=== PATIENT | male | born 1965 | race Hispanic/Latino ===

== ENCOUNTER 2016-11-15 08:46 | Emergency (ER) | payer OTHER ==
[~2016-11-15] VITALS: Ht 160 cm; Wt 81.8 kg
[~2016-11-15 08:46] MED LIST: VALA1000 PO
[2016-11-15 08:53] VITALS: BP 196/108; RESP 16; O2SAT 97
[2016-11-15] MEDS ORDERED: LISI-567 PO (09:10)
[2016-11-15] MEDS ORDERED: ATOR40TA69 PO (09:10)
[2016-11-15] MEDS ORDERED: METF500T4 PO (09:10)
[2016-11-15] MEDS ORDERED: HYDR25TA4 PO (09:10)
--- NOTE | 2016-11-15 09:18 | ED.REPORT ---
HPI-Ear Pain/Problem/FB Date of Service Nov 15, 2016 ED Provider: Juan Hoyos MD The patient is a 51 year old male with history of diabetes mellitus and hypertension, who presents to the emergency department complaining of left ear pain that began 2 days ago. He has also noticed clear/light red drainage from his ear, mild hearing loss, and diaphoresis. He has had similar symptoms in the past related to infections. He denies fever, chills, nausea or vomiting. He recently moved to the area and has not established primary care. Nursing Notes Stated Complaint: EAR PAIN Chief Complaint: ENT & Mouth Nursing Notes Reviewed: Yes Allergies: Coded Allergies: No Known Allergies (Unverified , 05/09/16) Scheduled Atorvastatin Calcium (Atorvastatin Calcium) 40 Mg Tablet 40 MG PO DAILY Hydrochlorothiazide (Hydrochlorothiazide) 25 Mg Tablet 12.5 MG PO DAILY Lisinopril (Lisinopril) 20 Mg Tablet 20 MG PO DAILY Metformin (Metformin) 500 Mg Tablet 500 MG PO DAILY Scheduled PRN Hydrocodone-Acetaminophen 5-325 mg (Hydrocodone-Acetaminophen 5-325 mg) 1 Each Tablet 1 TABLET PO Q4H PRN PRN For Pain General Time Seen by MD: 09:16 Chief Complaint Ear problem left Hx Obtained From: Patient Arrived By: Walk-in Onset Occurred: 2 days ago Symptom Duration: Since onset Quality: Painful Severity: Current: Mild Severity: Maximum: Moderate Recent Healthcare: No recent doctor visit, No recent hospitalization Similar Sx Previous: No Past Medical History Past Medical History Diabetes mellitus Hypertension Past Surgical History None reported Family History Noncontributory Smoking History Current Some Day Smoker Social History Recently moved to the area Other Social History: Local resident Ambulatory Status Independent Review of Systems Constitutional: Denies: Chills, Fever Ears / Nose / Throat: Reports: Ear drainage left, Earache left, Hearing loss left Complete sys rev & neg: except as marked. Additional Review of Systems GI: Denies: Nausea, Vomiting Skin: Reports Diaphoresis Physical Exam Initial Vital Signs Vital Signs (First) Date Time Temp Pulse Resp B/P Pulse Ox O2 Delivery O2 Flow Rate FiO2 11/15/16 08:53 36.3 68 16 196/108 97 Room Air Initial VS: Reviewed Head / Eyes: Atraumatic, Normocephalic, PERRL Neck: Supple, Non-tender, Full range of motion Respiratory: Breath sounds normal, Clear to auscultation, No respiratory distress Cardiovascular: Regular rate & rhythm, Heart sounds normal, Intact distal pulses Abdomen / GI: Soft, Non-tender, No guarding, No rebound, No distention Lymphatic: No lymphadenopathy Extremities: Vascular intact, Neuro intact, No swelling, No tenderness Skin: Warm, Dry, No cyanosis Neurologic: Alert, Oriented, Nonfocal Psychiatric: Mood/affect normal, Behavior normal, Normal thought content General/Constitutional: Awake, Alert, Cooperative ENT: Airway patent, Mucous membranes moist, Pharynx NL, No peritonsillar abscess, Nose exam NL, No sinus tenderness, No facial swelling Right Ear / Mastoid: Negative: Bullous myringitis, Tympanic memb perforated, Tympanic memb retracted, Tympanic membrane bulging, Tympanic membrane red Left Ear / Mastoid: Negative: Tympanic memb perforated, Tympanic memb retracted , Tympanic membrane bulging, Tympanic membrane red Left ear: serous drainage in external canal. External canal is slightly erythematous. No swelling or erythema of the TM. No evidence of erosion, abscess or cellulitis. Re-Eval/Medical Decision Med Decision/Clinical Course The patient is a 51 year old male with history of diabetes mellitus and hypertension, who presents to the emergency department complaining of left ear pain and drainage that began 2 days ago. He has had similar symptoms in the past. Upon arrival she is afebrile stable vital signs and no apparent distress. His diabetes is controlled by oral hypoglycemic agents and he is not on insulin. He is not nontoxic in appearance. Examination reveals drainage from the left external canal and slight erythema consistent with otitis externa. There is no evidence of perforation of the tympanic membrane or otitis media. There is no evidence of ligament otitis externa or mastoiditis. I do not feel that any further workup is indicated at this time. Patient was prescribed a course of polymyxin neomycin and hydrocortisone otic drops. He will follow up with his primary care physician in the next week to be rechecked. It is time I feel it is appropriate for discharge home. Follow-up and return precautions were reviewed in detail he was discharged in good condition. Source of Hx: Old records Re-Evaluation/Progress : Time of Eval: 09:44 Re-Evaluation/Progress Note: Discussed plan for discharge. All questions were addressed. Counseled Regarding: Diagnosis, Need for follow-up, When/why to return to ED Discharge & Departure Primary Impression: Otitis externa Otitis externa type: unspecified type Laterality: left Chronicity: acute Qualified Code: H60.502 - Unspecified acute noninfective otitis externa, left ear Additional Impressions: History of type 2 diabetes mellitus Ear pain, left Drainage from ear, left Disposition: Home Discharge Condition All VS Reviewed: Yes Condition: Stable Patient Instructions: Otitis Externa (ED) Additional Instructions: Thank you for seeking care at the emergency room. It is difficult for us to make definitive diagnoses in the ED but we believe that you are experiencing a left ear infection Our primary goal today in the ED was to evaluate you for any life-threatening conditions. Your evaluation was reassuring. You will be discharged with a prescription for ear drops and [place]. You should follow-up with your primary doctor in the next week. You should return to the ED immediately if you develop increased pain, swelling , redness, fevers, vomiting, or any other concerning signs or symptoms. Thank you for letting us partake in your care today. Referrals: [facility] Scribe Attestation Portions of this note were transcribed by Qian Moore. I, Dr. Hoyos personally performed the history, physical exam and medical decision-making; I reviewed and confirmed the accuracy of the information in the transcribed note. Signed by: Da Gerardo, 11/15/2016 and 0950. Juan Hoyos MD Nov 15, 2016 09:18 Qian Moore Nov 15, 2016 09:34
[2016-11-15] MEDS ORDERED: HYDR-4003 PO (09:49)
== END 2016-11-15 09:48 | disposition home or self-care (01) ==
LOC: SED 08:46
DX: H60.502 Unspecified acute noninfective otitis externa, left ear (principal); H92.12 Otorrhea, left ear; R61 Generalized hyperhidrosis; E11.9 Type 2 diabetes mellitus without complications; I10 Essential (primary) hypertension; Z79.84 Long term (current) use of oral hypoglycemic drugs; F17.200 Nicotine dependence, unspecified, uncomplicated